=== PATIENT | female | born 1980 | race Caucasian/White ===

== ENCOUNTER 2025-06-28 12:59 | Outpatient (REF) | payer OTHER, SELFPAY ==
--- OUTSIDE RECORDS SUMMARY | 2025-06-28 10:45 | XMS_ITS | Encounter Summary ---
Author Organization [employer] [facility] Address [address] [facility] [address] [place] [address] Care Team Providers Care Front End Mechanic Name Role Phone Unavailable Primary Care Provider Unavailabl e Reason for Referral * Consultation (Routine) - Authorized Specialty Diagnoses / Procedures Referred By Contcamilo t Referred To Contact Dental Bee Robber / Dentistry Diagnoses Healthcare maintenance Priti Bryant NP [address] [place] [address] Phone: tel: fax: Referral ID Status Reason Start Date Expiration Date Visits Requested Visits Authorized [id number] Authorized Consult and Treat 06/28/2025 06/28/2026 1 1 * Imaging (Routine) - Authorized Specialty Diagnoses / Procedures Referred By Vickey jensen Referred To Contact Radiology Diagnoses Breast screening Procedures BI Mammogram Screening Tomosynthesis Bilateral Priti Bryant NP [address] [place] [address] Phone: tel: fax: [address] Phone: tel: fax: Referral ID Status Reason Start Date Expiration Date V isits Requested Visits Authorized [id number] Authorized 06/28/2025 06/28/2026 1 1 Encounter Details Date Type Department Care Team (Late st Contact Info) Description 06/28/2025 10:45 AM EDT Office Visit [facility] [address] [place] [address] Fatigue, unspecified type (Primary Dx); Dietary counseling; Exercise counseling; Healthcare maintenance; Breast screening; Class 2 obesity with body mass index (BMI) of 36.0 to 36.9 in adult, unspecified obesity type, unspecified whether serious comorbidity present Social History Tobacco Use Types Packs/Day Years Used Date Smoking Tobacco: Never Passive Smoke Exposure: Never Smokeless Tobacco: Never Tobacco Cessation:Counseling Given: Not Answered Depression Answer Date Recorded Patient Health Questionnaire-9 Score 6 06/28/2025 Patient Health Questionnaire-9 Score 6 06/28/2025 Last PHQ-9: Questionnaire Data Not on file 1 Depression Answer Date Recorded Patient Health Questionnaire-2 Score 0 06/28/2025 Comments Unknown Sex and Gender Information Value Date Recorded Sex Assigned at Female 06/28/2025 10:37 AM EDT Legal Sex Female 3:07 PM EDT Gender Identity Female 06/28/2025 10:37 AM EDT Sexual Orientation Straight 06/28/2025 10 :37 AM EDT documented as of this encounter Last Filed Vital Signs Vital Sign Reading Time Taken Comments Blood Pressure 118/86 06/28/2025 11:00 AM EDT Pulse 99 06/28/2025 11:00 AM EDT Temperature 36.3 C (97.3 F) 06/28/2025 11:00 AM EDT Respiratory Rate 12 06/28/2025 11:00 AM EDT Oxygen Saturation 99% 06/28/2025 11:00 AM EDT Inhaled Oxygen Concentration - - Weight 96.3 kg (212 lb 4 oz) 06/28/2025 11:00 AM EDT Height 163.1 cm (5' 4.22 ) 06/28/2025 11:00 AM E DT Body Mass Index 36.18 06/28/2025 11:00 AM EDT documented in this encounter Functional Status * Over the past 2 weeks, how often have you been bothered by any of the following problems? Question Answer Date of Assessment Author Patient Health Questionnaire-2 Score 0 06/28/2025 12:15 PM EDT Vanessa Marshall MA * Little interest or pleasure in doing things Answer Date of Assessment Author Not at all 06/28/2025 12:15 PM EDT Vanessa Valles Ma, [place] * Feeling down, depressed, or hopeless Answer Date of Assessment Author Not at all 06/28/2025 12:15 PM EDT Vanessa Valles Ma, [place] * Trouble falling or staying asleep, or sleeping too much Answer Date of Assessment Author Nearly every day 06/28/2025 12:15 PM EDT Vanessa Dawson MA * Feeling tired or having little energy Answer Date of Assessment Author Nearly every day 06/28/2025 12:15 PM EDT Vanessa Dawson MA * Poor appetite or overeating Answer Date of Assessment Author Not at all 06/28/2025 12:15 PM EDT Vanessa Valles Ma, [place] * Feeling bad about yourself - or that you are a failure or have let yourself or your family down Answer Date of Assessment Author Not at all 06/28/2025 12:15 PM EDT Vanessa Valles Ma, [place] * Trouble concentrating on things, such as reading the newspaper or watching television Answer Date of Assessment Author Not at all 06/28/2025 12:15 PM EDT Vanessa Valles Ma, [place] * Moving or speaking so slowly that other people could have noticed? Or the opposite - being so fidgety or restless that you have been moving around a lot more than usual. Answer Date of Assessment Author Not at all 06/28/2025 12:15 PM EDT Vanessa Valles Ma, [place] * Thoughts that you would be better off or hurting yourself in some way Answer Date of Assessment Author Not at all 06/28/2025 12:15 PM EDT Vanessa Valles Ma, [place] * Patient Health Questionnaire-9 Score Answer Date of Assessment Author 6 06/28/2025 12:15 PM EDT Vanessa Valles Ma, [place] * How difficult have these problems made it for you to do your work, take care of things at home, or get along with other people? Answer Date of Assessment Author Not difficult at all 06/28/2025 12:15 PM EDT Vanessa Hill MA * Over the last 2 weeks, how often have you been bothered by any of the following problems? Question Answer Date of Assessment Author Feeling nervous, anxious, or on edge 1 06/28/2025 12:15 PM EDT Vanessa Wu MA Not being able to stop or control worrying 0 06/28/2025 12:15 PM EDT Vanessa Wu MA Worrying too much about different things 0 06/28/2025 12:15 PM EDT Vanessa Wu MA Trouble relaxing 3 06/28/2025 12:15 PM EDT Vanessa Wu MA Being so restless that it is hard to sit still 0 06/28/2025 12:15 PM EDT Vanessa Wu MA Becoming easily annoyed or irritable 0 06/28/2025 12:15 PM EDT Vanessa Wu MA Feeling afraid as if something awful might happen 0 06/28/2025 12:15 PM EDT Vanessa Dawson MA NELLA-7 Total Score 4 06/28/2025 12:15 PM EDT Vanessa Wu MA documented as of this encounter Miscellaneous Notes * Assessment & Plan Note - Sandy Bradford NP - 06/28/2025 10:45 AM EDTAssociated Problem(s): Fatigue Reports difficulty falling asleep. Discussed sleep hygiene, establishing a routine. Pt prefers homeremedies rather than medication. Recommended Sleepy Time Tea available OTC at grocery store. * Assessment & Plan Note - Sandy Bradford NP - 06/28/2025 10:45 AM EDTAssociated Problem(s): Dietary counseling Dietary Recommendations: Fruits, vegetables, whole grains, protein foods, and fat-free or low-fat dairy products are healthychoices. Eat different types of protein foods in your diet. This can include seafood, lean meats, poultry, beans, peas, lentils, nuts, seeds, soy products, and eggs. Limit foods and beverages higher in added sugars, saturated fat, and sodium. * Assessment & Plan Note - Sandy Bradford NP - 06/28/2025 10:45 AM EDTAssociated Problem(s): Exercise counseling Exercise Recommendations: At least 150 minutes of moderate-intensity physical activity per week, or an equivalent combinationof moderate- and vigorous-intensity activity * Assessment & Plan Note - Sandy Bradford NP - 06/28/2025 10:45 AM EDTAssociated Problem(s): Healthcare maintenance Will schedule pap Orders: Referral to [facility] Adult; Future * Assessment & Plan Note - Sandy Bradford NP - 06/28/2025 10:45 AM EDTAssociated Problem(s): Breast screening Orders: BI Mammogram Screening Tomosynthesis Bilateral; Future documented in this encounter Plan of Treatment Upcoming Encounters Date Type Department Care Team (Late st Contact Info) Description 07/19/2025 10:00 AM EDT Procedure Visit [facility] [address] [place], [place] [id number] Scheduled Orders Name Type Priority Associated Diagnoses Orde r Schedule BI Mammogram Screening Tomosynthesis Bilateral Imaging Routine Breast screening Expected: 06/28/2025, Expires: 08/28/2026 Comprehensive Metabolic Panel Lab Routine Class 2 obesity with body mass index (BMI) of 36.0 to 36.9 in adult, unspecified obesity type, unspecified whether serious comorbidity present Expected: 06/28/2025 (Approximate), Expires: 06/28/2026 TSH W/Reflex to FT4 Lab Routine Fatigue, unspecified type Expected: 06/28/2025 (Approximate), Expires: 06/28/2026 Vitamin B12/Folate, Serum Panel Lab Routine Fatigue, unspecified type Expected: 06/28/2025, Expires: 06/28/2026 Scheduled Referrals Name Type Priority Associated Diagnoses Orde r Schedule Referral to [facility] Adult Outpatient Referral Routine Healthcare maintenance Expected: 06/28/2025 (Approximate), Expires: 06/28/2026 documented as of this encounter Procedures Procedure Name Priority Date/Time Associated Diagnosis Comments CBC WITH AUTO DIFFERENTIAL Routine 06/28/2025 1:09 PM EDT Fatigue, unspecified type HEMOGLOBIN A1C Routine 06/28/2025 1:09 PM EDT Class 2 obesity with body mass index (BMI) of 36.0 to 36.9 in adult, unspecified obesity type, unspecified whether serious comorbidity present documented in this encounter Results * (ABNORMAL) Hemoglobin A1c (06/28/2025 1:09 PM EDT) Hemoglobin A1c >14.0(H) <6.0 % [facility] Comment:Hemoglobin A1C Refer ence Range Adults: 4.8 - 6.0 % Non diabetic: < 6.0 % Goal: < 7.0 %Additional Action Suggested: > 8.0 %Note: Hemoglobin A1c results are invalid for patients with abnormal amounts of HbF. Blood transfusions may impact the HbA1c concentration in the patient sample. Estimated Average Glucose TNP mg/dL [facility] Blood Venous blood specimen / Unknown 06/28/2025 1:09 PM EDT 06/28/2025 1:09 PM EDT us Priti Bryant NP LAB BLOOD ORDERABLES Final Resul t [facility] [address] [place] [phone] * (ABNORMAL) CBC auto differential (06/28/2025 1:09 PM EDT) White Blood Count 8.2 4.8 - 10.8 X10*3/uL [facility] Red Blood Count 5.25 4.20 - 5.50 X10*6/uL [facility] Hemoglobin 14.2 12.0 - 16.0 g/dl [facility] Hematocrit 40.7 37.0 - 47.0 % [facility] Mean Corpuscular Volume 77.5(L) 80.0 - 98.0 fL [facility] Mean Corpuscular Hemoglobin 27.0 27.0 - 33.0 pg [facility] Mean Corpuscular HGB Conc 34.9 31.0 - 35.0 g/dl [facility] Red Cell Distribution Width 12.8 11.0 - 16.0 % [facility] Platelet Count 228 160 - 400 X10*3/uL [facility] Mean Platelet Volume 11.1 9.4 - 12.3 fL [facility] Neutrophils Percent Auto 66.1 45 - 73 % [facility] Imm Gran Pct Auto 0.2 0.0 - 0.4 % [facility] Lymphocytes Percent Auto 26.6 20 - 40 % [facility] Monocytes Percent Auto 5.6 2 - 11 % [facility] Eosinophils Percent Auto 0.9 0 - 4 % [facility] Basophils Percent Auto 0.6 0 - 2 % [facility] NRBC Pct Auto 0.0 0.0 - 0.2 /100WBC [facility] Neutrophils Absolute Auto 5.4 2.0 - 8.3 x10*3/uL [facility] Imm Gran Abs Auto 0.02 0.00 - 0.03 X10*3/uL [facility] Lymphocytes Absolute Auto 2.2 1.2 - 4.9 X10*3/uL [facility] Monocytes Absolute Auto 0.5 0.1 - 1.2 X10*3/uL [facility] Eosinophils Absolute Auto 0.1 0.0 - 0.4 X10*3/uL [facility] Basophils Absolute Auto 0.1 0.0 - 0.2 X10*3/uL [facility] NRBC Abs Auto 0.000 0.0 - 0.012 X10*3/uL [facility] Blood Venous blood specimen / Unknown 06/28/2025 1:09 PM EDT 06/28/2025 1:09 PM EDT us Priti Bryant NP LAB BLOOD ORDERABLES Final Resul t [facility] [address] [place] [phone] [phone] documented in this encounter Visit Diagnoses Diagnosis Fatigue, unspecified type- Primary Dietary counseling Dietary surveillance and counseling Exercise counseling Healthcare maintenance Breast screening Breast screening, unspecified Class 2 obesity with body mass index (BMI) of 36.0 to 36.9 in adult, unspecified obesity type, unspecified whether serious comorbidity present documented in this encounter Additional Health Concerns Assessment Noted Time PHQ-9 Depression Total Score: 6 06/28/20 25 12:15 PM EDT documented as of this encounter
[2025-06-28 13:10] LABS: MANUAL DIFF FLAG NO
[2025-06-28 13:43] LABS: Hematocrit 40.7 % (37.0-47.0); Hemoglobin 14.2 g/dl (12.0-16.0); Imm Gran Abs Auto 0.02 X10*3/uL (0.00-0.03); Imm Gran Pct Auto 0.2 % (0.0-0.4); Lymphocytes Absolute Auto 2.2 X10*3/uL (1.2-4.9); Mean Corpuscular HGB Conc 34.9 g/dl (31.0-35.0); Mean Corpuscular Hemoglobin 27.0 pg (27.0-33.0); Mean Corpuscular Volume 77.5 fL (80.0-98.0); NRBC Abs Auto 0.000 X10*3/uL (0.0-0.012); NRBC Pct Auto 0.0 /100WBC (0.0-0.2); Platelet Count 228 X10*3/uL (160-400); Red Blood Count 5.25 X10*6/uL (4.20-5.50); White Blood Count 8.2 X10*3/uL (4.8-10.8)
--- OUTSIDE RECORDS SUMMARY | 2025-06-28 14:18 | XMS_ITS | Clinical Summary ---
Author Organization [employer] Address [address] [facility] [address] [place] [address] Care Team Providers Care Campus Safety Officer Name Role Phone Unavailable Primary Care Provider Unavailabl e Allergies No known active allergies Active Problems Problem Noted Date Diagnosed Date Dietary counseling 06/28/2025 Overview (06/28/2025): Dietary Recommendations: Fruits, vegetables, whole grains, protein foods, and fat-free or low-fat dairy products are healthy choices. Eat different types of protein foods in your diet. This can include seafood, lean meats, poultry, beans, peas, lentils, nuts, seeds, soy products, and eggs. Limit foods and beverages higher in added sugars, saturated fat, and sodium. Exercise Recommendations: At least 150 minutes of moderate-intensity physical activity per week, or an equivalent combination of moderate- and vigorous-intensity activity Assessment & Plan (06/28/2025 1:07 PM EDT): Dietary Recommendations: Fruits, vegetables, whole grains, protein foods, and fat-free or low-fat dairy products are healthy choices. Eat different types of protein foods in your diet. This can include seafood, lean meats, poultry, beans, peas, lentils, nuts, seeds, soy products, and eggs. Limit foods and beverages higher in added sugars, saturated fat, and sodium. Exercise counseling 06/28/2025 Assessment & Plan (06/28/2025 1:07 PM EDT): Exercise Recommendations: At least 150 minutes of moderate-intensity physical activity per week, or an equivalent combination of moderate- and vigorous-intensity activity Fatigue 06/28/2025 Assessment & Plan (06/28/2025 1:07 PM EDT): Reports difficulty falling asleep. Discussed sleep hygiene, establishing a routine. Pt prefers home remedies rather than medication. Recommended Sleepy Time Tea available OTC at grocery store. Healthcare maintenance 06/28/2025 Assessment & Plan (06/28/2025 1:07 PM EDT): Will schedule pap Orders: Referral to [facility] Adult; Future Breast screening 06/28/2025 Assessment & Plan (06/28/2025 12:06 PM EDT): Orders: BI Mammogram Screening Tomosynthesis Bilateral; Future Encounters Date Type Department Care Team Description 06/28/2025 10:45 AM EDT Office Visit [facility] [address] [place] [phone] Fatigue, unspecified type (Primary Dx); Dietary counseling; Exercise counseling; Healthcare maintenance; Breast screening; Class 2 obesity with body mass index (BMI) of 36.0 to 36.9 in adult, unspecified obesity type, unspecified whether serious comorbidity present 06/28/2025 Travel 06/19/2025 Travel 04/06/2025 Telephone [facility] [address] [place] [address] Javy Reese MD from Last 3 Months Social History Tobacco Use Types Packs/Day Years [...] Orientation Straight 06/28/2025 10 :37 AM EDT Last Filed Vital Signs Vital Sign Reading [...] Mass Index 36.18 06/28/2025 11:00 AM EDT Plan of Treatment Upcoming Encounters Date Type Department Care Team (Late st Contact Info) Description 07/19/2025 10:00 AM EDT Procedure Visit [facility] [address] [place] [address] Health Maintenance Due Date Last Done Comments HIV Screening 1981 Lipid Panel 1981 SDOH Screening 1981 Family Planning (PISQ) 1996 HPV Vaccines (1 - 3-dose series) 1996 Hepatitis C Screening 1999 DTaP/Tdap/Td Vaccines (1 - Tdap) 2000 Hepatitis B Vaccines (1 of 3 - 19+ 3-dose series) 2000 Pap Smear 2002 Cervical Cancer Screening 2011 HPV/Cotest 2011 Mammogram 2021 COVID-19 Vaccine (1 - 2023-2 5 season) 2025 Influenza Vaccine (#1) 2025 Alcohol/Substance Use Screening 06/28/2026 06/28/2025 Depression Screening 06/28/2026 06/28/2025, 06/28/2025 Disability Screening 06/28/2026 06/28/2025 Tobacco Screening 06/28/2026 06/28/2025 Zoster Vaccines (1 of 2) 2031 RSV Patients and Patients Aged 60 years or older (1 - 1-dose 75+ series) 2056 HIB Vaccines Aged Out No longer eligi ble based on patient's age to complete this topic Hepatitis A Vaccines Aged Out No long er eligible based on patient's age to complete this topic IPV Vaccines Aged Out No longer eligi ble based on patient's age to complete this topic Meningococcal B Vaccine Aged Out No l onger eligible based on patient's age to complete this topic Meningococcal Vaccine Aged Out No dequan fatuma eligible based on patient's age to complete this topic Pneumococcal Vaccine: Pediatrics (0 to 5 Years) and At-Risk Patients (6 to 49) Years Aged Out No longer eligible b ased on patient's age to complete this topic RSV under 20 months Aged Out No longe r eligible based on patient's age to complete this topic Rotavirus Vaccines Aged Out No longer eligible based on patient's age to complete this topic Procedures Procedure Name Priority Date/Time Associated Diagnosis Comments HEMOGLOBIN A1C Routine 06/28/2025 1:09 PM EDT Class 2 obesity with body mass index (BMI) of 36.0 to 36.9 in adult, unspecified obesity type, unspecified whether serious comorbidity present CBC WITH AUTO DIFFERENTIAL Routine 06/28/2025 1:09 PM EDT Fatigue, unspecified type from Last 3 Months Results * (ABNORMAL) CBC auto differential (06/28/2025 1:09 PM EDT) White Blood Count 8.2 4.8 - 10.8 X10*3/uL [facility] Red Blood Count 5.25 4.20 - 5.50 X10*6/uL [facility] Hemoglobin 14.2 12.0 - 16.0 g/dl [facility] Hematocrit 40.7 37.0 - 47.0 % [facility] Mean Corpuscular Volume 77.5(L) 80.0 - 98.0 fL [facility] Mean Corpuscular Hemoglobin 27.0 27.0 - 33.0 pg [facility] Mean Corpuscular HGB Conc 34.9 31.0 - 35.0 g/dl [facility] Red Cell Distribution Width 12.8 11.0 - 16.0 % [facility] Platelet Count 228 160 - 400 X10*3/uL [facility] Mean Platelet Volume 11.1 9.4 - 12.3 fL [facility] Neutrophils Percent Auto 66.1 45 - 73 % [facility] Imm Gran Pct Auto 0.2 0.0 - 0.4 % [facility] Lymphocytes Percent Auto 26.6 20 - 40 % [facility] Monocytes Percent Auto 5.6 2 - 11 % [facility] Eosinophils Percent Auto 0.9 0 - 4 % [facility] Basophils Percent Auto 0.6 0 - 2 % [facility] NRBC Pct Auto 0.0 0.0 - 0.2 /100WBC [facility] Neutrophils Absolute Auto 5.4 2.0 - 8.3 x10*3/uL [facility] Imm Gran Abs Auto 0.02 0.00 - 0.03 X10*3/uL [facility] Lymphocytes Absolute Auto 2.2 1.2 - 4.9 X10*3/uL [facility] Monocytes Absolute Auto 0.5 0.1 - 1.2 X10*3/uL [facility] Eosinophils Absolute Auto 0.1 0.0 - 0.4 X10*3/uL [facility] Basophils Absolute Auto 0.1 0.0 - 0.2 X10*3/uL [facility] NRBC Abs Auto 0.000 0.0 - 0.012 X10*3/uL [facility] Blood Venous blood specimen / Unknown 06/28/2025 1:09 PM EDT 06/28/2025 1:09 PM EDT us Priti Bryant NP LAB BLOOD ORDERABLES Final Resul t [facility] [address] [place] [phone] * (ABNORMAL) Hemoglobin A1c (06/28/2025 1:09 PM EDT) Hemoglobin A1c >14.0(H) <6.0 % [facility] Comment:Hemoglobin A1C Refer ence Range Adults: 4.8 - 6.0 % Non diabetic: < 6.0 % Goal: < 7.0 %Additional Action Suggested: > 8.0 %Note: Hemoglobin A1c results are invalid for patients with abnormal amounts of HbF. Blood transfusions may impact the HbA1c concentration in the patient sample. Estimated Average Glucose TNP mg/dL [facility] Blood Venous blood specimen / Unknown 06/28/2025 1:09 PM EDT 06/28/2025 1:09 PM EDT us Priti Bryant NP LAB BLOOD ORDERABLES Final Resul t [facility] [address] [place] [phone] [phone] from Last 3 Months Insurance [facility] ST[facility]
--- OUTSIDE RECORDS SUMMARY | 2025-06-28 14:18 | XMS_ITS | Encounter Summary ---
Author Organization [employer] Address [address] [facility] 7 [place] [address] Care Team Providers Care Project Development Director Name Role Phone Unavailable Primary Care Provider Unavailabl e Encounter Details Date Type Department Care Team (Latest Contact Info) Description 06/28/2025 Travel Social History Tobacco Use Types Packs/Day Years Used Date Smoking Tobacco: Never Passive Smoke Exposure: Never Smokeless Tobacco: Never Depression Answer Date Recorded Patient Health Questionnaire-9 [...] AM EDT documented as of this encounter Functional Status * Over the [...] Wu [place] documented as of this encounter Plan of Treatment Upcoming Encounters Date Type Department Care Team (Late st Contact Info) Description 07/19/2025 10:00 AM EDT Procedure Visit [facility] [address] [place] [address] documented as of this encounter Visit Diagnoses Not on filedocumented in this encounter Additional Health Concerns Assessment Noted Time PHQ-9 Depression Total Score: 6 06/28/20 25 12:15 PM EDT documented as of this encounter
[2025-06-28 14:46] LABS: Alanine Aminotransferase 18 U/L (0-31); Albumin Level 4.2 g/dL (3.5-5.0); Alkaline Phosphatase 100 U/L (39-117); Anion Gap 10 (12-20); Aspartate Amino Transferase 14 U/L (5-31); Blood Urea Nitrogen 12 mg/dL (9-16); Calcium 9.5 mg/dL (8.4-10.2); Carbon Dioxide 25 mmol/L (22-29); Chloride 102 mmol/L (96-108); Estimated Glomerular Filt Rate > 60; Potassium 4.1 mmol/L (3.3-5.1); Sodium 133 mmol/L (135-145); Total Protein 7.5 g/dL (6.5-8.0)
[2025-06-28 15:01] LABS: Folate 11.9 ng/mL (> or = 4.0); Vitamin B12 297 pg/mL (200-900)
== END 2025-06-28 13:00 | disposition home or self-care (01) ==
LOC: HO.LAB 12:59
PROVIDERS: PCP Nurse Practitioner Family; Visit Provider Nurse Practitioner Family
DX: Z13.1 Encounter for screening for diabetes mellitus (principal); E66.812 Obesity, class 2; R53.83 Other fatigue; Z68.36 Body mass index [BMI] 36.0-36.9, adult
CPT/HCPCS: 36415; 80053; 82607; 82746; 83036; 84443; 85025